=== PATIENT | female | born 1970 | race Caucasian/White ===

== ENCOUNTER 2022-09-08 20:41 | Emergency (ER) | payer OTHER ==
[~2022-09-08] VITALS: Ht 165.1 cm; Wt 68.0 kg
[~2022-09-08 20:41] MED LIST: ATEN-72 PO; DULO20CA71 PO; GABA-1216 PO; MIRT-89 PO; NALT50TA PO; OMEG-135 PO; PRAZ1 PO
[2022-09-08 23:33] LABS: BASOPHILS % (AUTO) 0.2 % (0.0-2.0); EOSINOPHILS % (AUTO) 0.2 % (1.0-6.0); HEMATOCRIT 41.5 % (36-46); LYMPHOCYTES # (AUTO) 1.4 K/uL (1.0-4.8); LYMPHOCYTES % (AUTO) 6.9 % (22.0-44.0); MEAN CORPUSCULAR HEMOGLOBIN 32.7 pg (26.0-34.0); MEAN CORPUSCULAR HGB CONC 33.7 G/dL (31.0-37.0); MEAN CORPUSCULAR VOLUME 97 fL (80-100); MONOCYTES # (AUTO) 1.4 K/uL (0.1-1.0); MONOCYTES % (AUTO) 6.6 % (2.0-9.0); NEUTROPHILS # (AUTO) 18.1 K/uL (1.8-7.7); PLATELET COUNT (AUTO) 468 K/uL (150-450); RED BLOOD CELL COUNT(AUTO) 4.28 MIL/uL (4.00-5.20); RED CELL DISTRIBUTION WIDTH 12.7 % (11.5-14.5)
[2022-09-08 23:39] LABS: NEUTROPHILS % (AUTO) 86.1 % (40.0-70.0)
[2022-09-08 23:43] LABS: CALCIUM, TOTAL 9.5 mg/dL (8.8-10.5); CREATININE 1.05 mg/dL (0.60-1.30); POTASSIUM 3.5 mmol/L (3.5-5.1)
[2022-09-08] MEDS ORDERED: KETOROLAC TROMETHAMINE 30 MG/ML VIAL IVP ONE (23:45)
[2022-09-08] MEDS ORDERED: KETOROLAC TROMETHAMINE 15 MG/ML VIAL IVP ONE (23:45)
[2022-09-08] MEDS ORDERED: SODIUM CHLORIDE 0.9% 1,000 ML IV ONE (23:45)
[2022-09-08] MEDS ORDERED: ONDANSETRON HCL 4 MG/2 ML VIAL IVP ONE (23:45)
[2022-09-08 23:49] LABS: BILIRUBIN,TOTAL 0.5 mg/dL (0.1-1.0); TOTAL PROTEIN, SERUM 8.3 g/dL (6.4-8.2)
[2022-09-09] MEDS ORDERED: SODIUM CHLORIDE 0.9% 100 ML ONE (00:32)
[2022-09-09] MEDS ORDERED: IOHEXOL 350 MG/ML 100 ML VIAL ONE (00:32)
[2022-09-09] MEDS ORDERED: METOCLOPRAMIDE HCL 5 MG/ML 2 ML VIAL IVP ONE (01:45)
[2022-09-09] MEDS ORDERED: DiphenhydrAMINE HCL 50 MG/ML VIAL IVP ONE (01:45)
[2022-09-09] MEDS ORDERED: ONDANSETRON HCL 4 MG/2 ML VIAL IVP ONE (02:00)
[2022-09-09] MEDS ORDERED: KETOROLAC TROMETHAMINE 15 MG/ML VIAL IVP ONE (02:00)
[2022-09-09] MEDS ORDERED: KETOROLAC TROMETHAMINE 30 MG/ML VIAL IVP ONE (02:00)
[2022-09-09 02:19] LABS: APPEARANCE,URINE CLEAR (CLEAR); BILIRUBIN,URINE NEGATIVE (NEGATIVE); GLUCOSE, URINE (UA) NEGATIVE (NEGATIVE); KETONES,URINE TRACE mg/dL (NEGATIVE); LEUKOCYTE ESTERASE ,URINE NEGATIVE (NEGATIVE); NITRATE,URINE NEGATIVE (NEGATIVE); OCCULT BLOOD,URINE SMALL (NEGATIVE); PROTEIN,URINE NEGATIVE (NEGATIVE); SPECIFIC GRAVITIY, URINE 1.033 (1.003-1.030); UROBILINOGEN,URINE <=1.0 mg/dL (<=1.0)
[2022-09-09] MEDS ORDERED: LORazepam 1 MG TABLET PO ONE (02:30)
[2022-09-09] MEDS ORDERED: LORazepam 0.5 MG TABLET PO ONE (02:30)
[2022-09-09 02:31] LABS: BACTERIA,URINE None Seen /HPF (None Seen); SQUAMOUS EPITHELIAL CELL,UR None Seen /LPF (None Seen); WBC,URINE None Seen /HPF (0-5)
[2022-09-09] MEDS ORDERED: AMOX1TAB16 PO (04:27)
[2022-09-09] MEDS ORDERED: ONDA-104 PO (04:27)
[2022-09-09] MEDS ORDERED: AMOX TR/POT CLAV 875 MG/125 MG TABLET PO ONE (04:30)
[2022-09-09 05:00] VITALS: BP 129/75; PULSE 78; RESP 20; TEMP 98.7
== END 2022-09-09 05:13 | disposition home or self-care (01) ==
LOC: EMS 20:42
DX: K52.9 Noninfective gastroenteritis and colitis, unspecified (principal)
CPT/HCPCS: 99285; 80053; 81001; 83690; 84703; 85025; 36415; 74177; 96374; 96375; 96361; 96376; J1200; J1885 ×2; J2765; J2405; Q9967; J7030; J7050